=== PATIENT | female | born 1960 | race Caucasian/White ===

== ENCOUNTER 2016-12-02 05:32 | Emergency (ER) | payer BC, OTHER, SELFPAY ==
[2016-12-02] MEDS ORDERED: Lidocaine 1% 20 ML MDV ONE (05:45)
== END 2016-12-02 06:14 | disposition home or self-care (01) ==
LOC: MADERS 05:32
DX: T16.2XXA Foreign body in left ear, initial encounter (principal); I10 Essential (primary) hypertension; J45.909 Unspecified asthma, uncomplicated; F41.9 Anxiety disorder, unspecified
CPT/HCPCS: 69200; J2001

== ENCOUNTER 2018-01-19 23:28 | Emergency (ER) | payer OTHER ==
--- NOTE | 2018-01-20 07:44 | RAD ---
TWO VIEWS CHEST: HISTORY: Difficulty breathing. Congestion. FINDINGS: PA and lateral views of the chest are obtained on 01/19/2018. Comparison is made to previous exam fr om 10/11/2009. Two views chest demonstrate the lungs to be well aerated. No evidence of active intrathoracic diseas e is seen. No evidence of effusions, pneumonia, or pneumothorax seen. IMPRESSION: Normal 2 views chest. POS: [facility]
== END 2018-01-20 00:25 | disposition home or self-care (01) ==
LOC: MADERS 23:28
DX: J02.9 Acute pharyngitis, unspecified (principal); J20.9 Acute bronchitis, unspecified; F41.9 Anxiety disorder, unspecified; I10 Essential (primary) hypertension; J45.909 Unspecified asthma, uncomplicated; Z79.899 Other long term (current) drug therapy; Z79.51 Long term (current) use of inhaled steroids
CPT/HCPCS: 71046

== ENCOUNTER 2018-01-24 10:03 | Emergency (ER) | payer OTHER | END 2018-01-24 11:15 | disposition home or self-care (01) | LOC: MADERS 10:03 | DX: J20.9 Acute bronchitis, unspecified (principal); J06.9 Acute upper respiratory infection, unspecified; I10 Essential (primary) hypertension; J45.909 Unspecified asthma, uncomplicated; F41.9 Anxiety disorder, unspecified; Z79.899 Other long term (current) drug therapy | CPT/HCPCS: 99283 ==

== ENCOUNTER 2018-08-03 16:30 | Outpatient (CLI) | payer OTHER ==
--- NOTE | 2018-08-03 16:52 | RAD ---
CHEST TWO VIEWS: 08/03/18 HISTORY: Asthma. COMPARISON: 01/19/18. FINDINGS: Heart size is within normal limits. Stable minimal increase linear and interstitial markings bilater ally, evidence for mild chronic change. No confluent pneumonia, overt edema, or pleural effusion. IMPRESSION: Mild stable chronic changes. No acute intrathoracic disease. Atherosclerosis of the aorta. POS: [facility]
== END 2018-08-03 16:31 | disposition home or self-care (01) ==
LOC: MADRAD 16:30
PROVIDERS: ATTEND Obstetrics & Gynecology
DX: J45.40 Moderate persistent asthma, uncomplicated (principal); I70.0 Atherosclerosis of aorta
CPT/HCPCS: 71046

== ENCOUNTER 2019-03-19 16:06 | Emergency (ER) | payer OTHER, SELFPAY | END 2019-03-19 16:30 | disposition home or self-care (01) | LOC: MADERS 16:06 | DX: R05 Cough (principal); I10 Essential (primary) hypertension; J45.909 Unspecified asthma, uncomplicated; F41.9 Anxiety disorder, unspecified; Z79.899 Other long term (current) drug therapy; Z79.51 Long term (current) use of inhaled steroids | CPT/HCPCS: 99283 ==

== ENCOUNTER 2019-03-22 10:06 | Emergency (ER) | payer SELFPAY | END 2019-03-22 11:30 | disposition home or self-care (01) | LOC: MADERS 10:06 | DX: J11.1 Influenza due to unidentified influenza virus with other respiratory manifestations (principal); J45.909 Unspecified asthma, uncomplicated; I10 Essential (primary) hypertension; F41.9 Anxiety disorder, unspecified; Z79.51 Long term (current) use of inhaled steroids; Z79.899 Other long term (current) drug therapy | CPT/HCPCS: 99284 ==

== ENCOUNTER 2020-05-12 19:20 | Emergency (ER) | payer OTHER | END 2020-05-12 20:03 | disposition home or self-care (01) | LOC: MADERS 19:20 | DX: L40.0 Psoriasis vulgaris (principal); R50.9 Fever, unspecified; I10 Essential (primary) hypertension; I99.8 Other disorder of circulatory system; J45.909 Unspecified asthma, uncomplicated; G47.30 Sleep apnea, unspecified; I34.1 Nonrheumatic mitral (valve) prolapse; Z79.82 Long term (current) use of aspirin; Z79.899 Other long term (current) drug therapy | CPT/HCPCS: 99283 ==

== ENCOUNTER 2020-05-13 17:29 | Emergency (ER) | payer OTHER ==
[2020-05-14 15:46] LABS: SARS-CoV-2 PCR by NAA DETECTED (NotDetected)
== END 2020-05-13 18:10 | disposition home or self-care (01) ==
LOC: MADERS 17:29
DX: U07.1 COVID-19 (principal); R21 Rash and other nonspecific skin eruption; I10 Essential (primary) hypertension; I99.8 Other disorder of circulatory system; J45.909 Unspecified asthma, uncomplicated; G47.30 Sleep apnea, unspecified; I34.1 Nonrheumatic mitral (valve) prolapse; Z79.899 Other long term (current) drug therapy
CPT/HCPCS: 87635; 99283; U0003; U0005

== ENCOUNTER 2020-05-15 02:03 | Emergency (ER) | payer OTHER ==
[2020-05-15] MEDS ORDERED: Dexamethasone 4 MG TAB ONE (02:38)
== END 2020-05-15 02:48 | disposition home or self-care (01) ==
LOC: MADERS 02:03
DX: R05 Cough (principal); R50.9 Fever, unspecified; Z20.822 Contact with and (suspected) exposure to COVID-19; I10 Essential (primary) hypertension; J45.909 Unspecified asthma, uncomplicated; R06.81 Apnea, not elsewhere classified; Z79.899 Other long term (current) drug therapy
CPT/HCPCS: 99283; J8540

== ENCOUNTER 2020-06-07 09:33 | Outpatient (CLI) | payer OTHER | END 2020-06-07 09:34 | disposition home or self-care (01) | LOC: MADRAD 09:33 | PROVIDERS: ATTEND Family Medicine | DX: U07.1 COVID-19 (principal); J12.82 Pneumonia due to coronavirus disease 2019; J98.4 Other disorders of lung | CPT/HCPCS: 71046 ==

== ENCOUNTER 2021-03-07 02:39 | Emergency (ER) | payer OTHER ==
[2021-03-07 05:15] LABS: SARS-CoV-2 NAA Rapid Test Not Detected (NotDetected)
== END 2021-03-07 05:50 | disposition home or self-care (01) ==
LOC: MADERS 02:39
DX: J06.9 Acute upper respiratory infection, unspecified (principal); J20.9 Acute bronchitis, unspecified; J04.0 Acute laryngitis; Z20.822 Contact with and (suspected) exposure to COVID-19; I10 Essential (primary) hypertension; J45.909 Unspecified asthma, uncomplicated; G47.30 Sleep apnea, unspecified; Z79.899 Other long term (current) drug therapy
CPT/HCPCS: 0240U; 71045

== ENCOUNTER 2021-12-16 09:35 | Outpatient (CLI) | payer OTHER | END 2021-12-16 09:36 | disposition home or self-care (01) | LOC: MADLAB 09:35 → MADRAD 09:36 | PROVIDERS: ATTEND Family Medicine | DX: S60.229A Contusion of unspecified hand, initial encounter (principal); M79.642 Pain in left hand; W01.0XXA Fall on same level from slipping, tripping and stumbling without subsequent striking against object, initial encounter ==

== ENCOUNTER 2022-06-28 15:55 | Emergency (ER) | payer OTHER ==
[2022-06-28] MEDS ORDERED: Doxycycline 100 MG CAP ONE (17:03)
== END 2022-06-28 17:09 | disposition home or self-care (01) ==
LOC: MADERS 15:55
DX: J01.90 Acute sinusitis, unspecified (principal); J06.9 Acute upper respiratory infection, unspecified; J45.909 Unspecified asthma, uncomplicated
CPT/HCPCS: 99283

== ENCOUNTER 2022-07-03 12:33 | Outpatient (CLI) | payer OTHER | END 2022-07-03 12:34 | disposition home or self-care (01) | LOC: MADRAD 12:33 | PROVIDERS: ATTEND Nurse Practitioner Family | DX: J45.901 Unspecified asthma with (acute) exacerbation (principal); J06.9 Acute upper respiratory infection, unspecified; I10 Essential (primary) hypertension; J45.998 Other asthma; M13.80 Other specified arthritis, unspecified site | CPT/HCPCS: 71046 ==

== ENCOUNTER 2023-02-18 09:07 | Emergency (ER) | payer OTHER | END 2023-02-18 10:15 | disposition home or self-care (01) | LOC: MADERS 09:07 | DX: J45.909 Unspecified asthma, uncomplicated (principal); I10 Essential (primary) hypertension; Z79.899 Other long term (current) drug therapy | CPT/HCPCS: 99283 ==

== ENCOUNTER 2023-02-19 09:30 | Emergency (ER) | payer OTHER | END 2023-02-19 11:30 | disposition home or self-care (01) | LOC: MADERS 09:30 | DX: J06.9 Acute upper respiratory infection, unspecified (principal); F41.9 Anxiety disorder, unspecified; J45.901 Unspecified asthma with (acute) exacerbation | CPT/HCPCS: 71046 ==

== ENCOUNTER 2023-07-29 09:15 | Emergency (ER) | payer OTHER | END 2023-07-29 09:42 | disposition home or self-care (01) | LOC: MADERS 09:15 | DX: J44.1 Chronic obstructive pulmonary disease with (acute) exacerbation (principal); I11.0 Hypertensive heart disease with heart failure; I50.9 Heart failure, unspecified | CPT/HCPCS: 99284 ==

== ENCOUNTER 2023-11-19 05:48 | Emergency (ER) | payer OTHER ==
[2023-11-19] MEDS ORDERED: Ipratropium/Albuterol 3 ML NEB ONE (06:22)
[2023-11-19] MEDS ORDERED: predniSONE 20 MG TAB ONE (06:23)
[2023-11-19 06:54] LABS: SARS-CoV-2 E Target Positive; SARS-CoV-2 N2 Target Positive; SARS-CoV-2 NAA Rapid Test DETECTED (NotDetected); SARS-CoV-2 RdRP gene Positive
== END 2023-11-19 07:09 | disposition home or self-care (01) ==
LOC: MADERS 05:48
DX: J45.909 Unspecified asthma, uncomplicated (principal); I11.0 Hypertensive heart disease with heart failure; I50.32 Chronic diastolic (congestive) heart failure; Z79.899 Other long term (current) drug therapy; Z79.82 Long term (current) use of aspirin
CPT/HCPCS: 87804; 99283; J7512; J7620; U0002

== ENCOUNTER 2024-01-26 09:34 | Outpatient (CLI) | payer OTHER | END 2024-01-26 09:35 | disposition home or self-care (01) | LOC: MADRAD 09:34 | PROVIDERS: ATTEND Family Medicine | DX: L40.0 Psoriasis vulgaris (principal); M19.041 Primary osteoarthritis, right hand ==

== ENCOUNTER 2024-02-18 23:05 | Emergency (ER) | payer OTHER ==
[2024-02-18] MEDS ORDERED: Ipratropium/Albuterol 3 ML NEB ONE (23:35)
[2024-02-19 00:15] LABS: Eosinophils 4 % (0-10); Hematocrit 43.2 % (36.0-47.0); Hemoglobin 14.3 g/dL (12.0-16.0); Lymphocytes 16 % (21-51); MDiff Complete? YES; Mean Corpuscular HGB CONC 33.1 g/dL (32.0-36.0); Mean Corpuscular Hemoglobin 28.8 pg (27.0-31.0); Mean Corpuscular Volume 87.1 fl (78.0-98.0); Mean Platelet Volume 9.3 fL (7.4-10.4); Monocytes 11 % (0-10); Neutrophil 69 % (42-75); Platelet Count 261 10x3/uL (130-400); RBC Distribution Width 12.5 % (11.5-14.5); Red Blood Cell (RBC) Count 4.96 mill/uL (4.20-5.40); White Blood Cell (WBC) Count 9.9 10x3/uL (4.8-10.8)
[2024-02-19 00:32] LABS: Troponin I Less than 0.010 ng/mL (< 0.028)
[2024-02-19 00:34] LABS: ALT (SGPT) 22 U/L (8-55); AST (SGOT) 17 U/L (5-34); Alkaline Phosphatase 95 U/L (40-110); Anion Gap 18 mmol/L (10-20); BUN (Urea Nitrogen) 15 mg/dL (9.8-20.1); Bilirubin, Total 0.7 mg/dL (0.2-1.2); Calc. Creatinine Clearance 0 mL/min (70-130); Calcium 9.1 mg/dL (7.8-10.44); Carbon Dioxide 22 mmol/L (23-31); Chloride 104 mmol/L (98-107); Estimated GFR 72; Globulin 2.7 g/dL (2.4-3.5); Glucose 103 mg/dL (80-115); Potassium 3.9 mmol/L (3.5-5.1); Protein, Total 6.7 g/dL (5.8-8.1); Sodium 140 mmol/L (136-145)
[2024-02-19] MEDS ORDERED: Ipratropium/Albuterol 3 ML NEB ONE (00:55)
[2024-02-19] MEDS ORDERED: methylPREDNISolone Sod Succ/PF 125 MG/2 ML VIAL ONE (00:55)
== END 2024-02-19 01:20 | disposition home or self-care (01) ==
LOC: MADERS 23:05
DX: J45.901 Unspecified asthma with (acute) exacerbation (principal); I11.0 Hypertensive heart disease with heart failure; I50.32 Chronic diastolic (congestive) heart failure
CPT/HCPCS: 71046; 80053; 83880; 84484; 85025; 85379; 87070; 87205; 87428; 93005; 94640; J2919; J7620

== ENCOUNTER 2024-04-29 08:40 | Emergency (ER) | payer OTHER ==
[2024-04-29] MEDS ORDERED: Acetaminophen 500 MG TAB ONE (09:08)
[2024-04-29] MEDS ORDERED: Oseltamivir 75 MG CAP ONE (09:08)
== END 2024-04-29 09:31 | disposition home or self-care (01) ==
LOC: MADERS 08:40
DX: J45.909 Unspecified asthma, uncomplicated (principal); J11.1 Influenza due to unidentified influenza virus with other respiratory manifestations; I11.0 Hypertensive heart disease with heart failure; I50.32 Chronic diastolic (congestive) heart failure
CPT/HCPCS: 71046

== ENCOUNTER 2024-12-08 08:20 | Outpatient (CLI) | payer OTHER ==
[2024-12-08 09:29] LABS: #Basophils 0.1 thou/uL (0.0-0.2); #Eosinophils 0.2 thou/uL (0.0-0.7); #Lymphocytes 1.9 thou/uL (1.20-3.40); #Monocytes 0.6 thou/uL (0.11-0.59); #Neutrophils 4.2 thou/uL (1.40-6.50); %Basophils 1.1 % (0.0-1.0); %Eosinophils 2.2 % (0.0-10.0); %Lymphocytes 27.2 % (21.0-51.0); %Monocytes 8.8 % (0.0-10.0); %Neutrophils 60.7 % (42.0-75.0); Glucose, Urine (Dipstick) Negative (Negative); Hematocrit 43.1 % (36.0-47.0); Hemoglobin 13.9 g/dL (12.0-16.0); Leukocyte Negative (Negative); Mean Corpuscular Hemoglobin 28.0 pg (27.0-31.0); Mean Corpuscular Volume 87.2 fl (78.0-98.0); Platelet Count 290 10x3/uL (130-400); Protein, Urine (Dipstick) Negative (Neg-Trace); Red Blood Cell (RBC) Count 4.94 mill/uL (4.20-5.40); Specific Gravity, Urine 1.020 (1.005-1.030); White Blood Cell (WBC) Count 7.0 10x3/uL (4.8-10.8)
[2024-12-08 09:30] LABS: ALT (SGPT) 15 U/L (Less than 34); AST (SGOT) 19 U/L (11-34); Albumin 3.9 g/dL (3.1-4.5); Alkaline Phosphatase 86 U/L (40-110); Anion Gap 15 mmol/L (10-20); BUN (Urea Nitrogen) 21 mg/dL (9.8-20.1); Bilirubin, Total 0.6 mg/dL (0.3-1.2); Calc. Creatinine Clearance 0 mL/min (70-130); Calcium 9.2 mg/dL (7.8-10.44); Carbon Dioxide 26 mmol/L (23-31); Cardiac Risk 2.8 (Less than 4.5); Chloride 105 mmol/L (98-107); Cholesterol 161 mg/dl (< 200 Desired); Globulin 2.8 g/dL (2.4-3.5); Glucose 104 mg/dL (80-115); HDL Cholesterol 57 mg/dL (>60 Neg Risk); LDL Cholesterol, Calculated 91 mg/dL; Magnesium 2.0 mg/dL (1.6-2.6); Potassium 3.9 mmol/L (3.5-5.1); Sodium 142 mmol/L (136-145); Triglycerides 65 mg/dL (Less than 150)
[2024-12-08 16:37] LABS: HIV (1/2) Antibody/Antigen NONREACTIVE (NonReactive); HIV 1/2 INDEX 0.05 S/CO (<1.00); Hep B Core Total Ab NONREACTIVE (NonReactive); Hep B Core Total Index 0.11 S/CO (0-0.79); Hep C IgG Ab NONREACTIVE S/CO (NonReactive); Hep C Index 0.05 S/CO (0-0.79); Vitamin D, 25 Hydroxy 24.9 ng/ml (> 30.0)
== END 2024-12-08 08:21 | disposition home or self-care (01) ==
LOC: MADLAB 08:20
PROVIDERS: ATTEND Specialist
DX: E78.2 Mixed hyperlipidemia (principal); I50.32 Chronic diastolic (congestive) heart failure; E55.9 Vitamin D deficiency, unspecified; R73.03 Prediabetes; L40.8 Other psoriasis
CPT/HCPCS: 36415; 80053; 80061; 81003; 82306; 83036; 83735; 85025; 86704; 86803; 87389

== ENCOUNTER 2024-12-11 09:33 | Outpatient (CLI) | payer OTHER | END 2024-12-11 09:34 | disposition home or self-care (01) | LOC: MADLAB 09:33 | PROVIDERS: ATTEND Dermatology | DX: L40.8 Other psoriasis (principal) | CPT/HCPCS: 36415; 86480 ==

== ENCOUNTER 2025-01-29 01:48 | Emergency (ER) | payer MEDICARE, OTHER | END 2025-01-29 02:26 | disposition home or self-care (01) | LOC: MADERS 01:48 | DX: J06.9 Acute upper respiratory infection, unspecified (principal); I11.0 Hypertensive heart disease with heart failure; I50.32 Chronic diastolic (congestive) heart failure; J45.909 Unspecified asthma, uncomplicated; Z79.51 Long term (current) use of inhaled steroids; Z79.899 Other long term (current) drug therapy | CPT/HCPCS: 99283 ==

== ENCOUNTER 2025-01-30 10:40 | Outpatient (CLI) | payer MEDICARE | END 2025-01-30 10:41 | disposition home or self-care (01) | LOC: MADRAD 10:40 | DX: R05.9 Cough, unspecified (principal) | CPT/HCPCS: 71046 ==